=== PATIENT | female | born 1940 | race Caucasian/White ===

== ENCOUNTER 2022-04-07 05:01 | Inpatient (IN) ==
[2022-04-07 05:52] LABS: Monocytes % 5.2 %; Red Cell Distribution Width 12.8 % (11.5-14.5)
[2022-04-07 05:53] LABS: Basophils # 0.2 K/mcL (0.0-0.2); Basophils % 0.7 %; Hematocrit 32.5 % (35.3-44.9); Immature Granulocytes % 3.2 % (0-4); Lymphocytes # 1.2 K/mcL (0.6-4.6); Lymphocytes % 3.6 %; Mean Corpuscular HGB Conc 33.8 g/dL (31.6-35.5); Mean Corpuscular Hemoglobin 28.4 pg (28.0-33.3); Mean Corpuscular Volume 83.8 fL (83.0-100.0); Mean Platelet Volume 11.1 fL (9.4-12.4); Monocytes # 1.7 K/mcL (0.0-1.3); Nucleated Red Blood Cells 0.3 /100 WBC (0); Platelet Count 595 K/mcL (140-400); Red Blood Count 3.88 M/mcL (3.82-4.97); Segmented Neutrophils % 87.3 %
[2022-04-07] MEDS ORDERED: Iopamidol - 370 500 ML MLS IVP ONE (05:54)
[2022-04-07] MEDS ORDERED: Ketorolac 30 MG/ML VIAL IVP ONE (05:57)
[2022-04-07] MEDS ORDERED: Famotidine 20 MG/2 ML VIAL IVP ONE (05:57)
[2022-04-07] MEDS ORDERED: Ringers Solution, Lactated 1,000 ML IVC ONE ×2 (05:57→06:18)
[2022-04-07 05:58] LABS: Neutrophils # 28.4 K/mcL (1.6-8.9)
[2022-04-07 06:03] LABS: White Blood Count 32.5 K/mcL (4.3-11.1)
[2022-04-07] MEDS ORDERED: Cefepime HCl 2,000 MG in 0.9 % Sodium Chloride 10 ML IVP ONE (06:03)
[2022-04-07] MEDS ORDERED: Vancomycin 1,250 MG/262.5 ML IV.SOLN IVPB ONE (06:03)
[2022-04-07 06:15] LABS: Albumin 2.9 g/dL (3.5-5.7); Albumin/Globulin Ratio 0.8 (1.1-2.2); Bilirubin,Total 0.8 mg/dL (0.3-1.0); Calcium 9.1 mg/dL (8.6-10.3); Globulin 3.5 g/dL (2.4-3.5); Magnesium 2.2 mg/dL (1.6-2.6); Potassium 3.6 mEq/L (3.5-5.1); Total Protein 6.4 g/dL (6.4-8.9); Troponin I 0.28 ng/mL (< 0.04)
[2022-04-07 06:29] LABS: Thyroid Stimulating Hormone 0.781 mcIU/mL (0.340-5.600)
[2022-04-07 08:40] LABS: Bacteria,Urine Many per hpf (None-Few); Hyaline Casts,Urine Few per lpf (None Seen); Mucus,Urine Few per lpf (None-Few); RBC,Urine 0-3 per hpf (0-3); Squamous Epithelial Cell,Urine Few per hpf (None-Few); WBC,Urine 0-3 per hpf (0-3)
[2022-04-07 08:41] LABS: Bilirubin,Urine Negative (Negative); Blood,Urine Negative (Negative); Clarity,Urine Turbid (Clear); Color,Urine Yellow (Yellow); Glucose,Urine (UA) Normal (Normal); Ketones,Urine Negative (Negative); Leukocyte Esterase,Urine Negative (Negative); Nitrite,Urine Negative (Negative); PH,Urine 5.5 pH Units (5.0-8.0); Protein,Urine 100 mg/dL (Neg-Trace); Specific Gravity,Urine 1.018 (1.010-1.025)
[2022-04-07] MEDS ORDERED: Naloxone 0.4 MG/ML INJ IVP PRN (11:28)
[2022-04-07] MEDS ORDERED: Ondansetron 4 MG/2 ML VIAL IVP PRN (11:28)
[2022-04-07] MEDS ORDERED: Lactulose 200 GM, Sodium Chloride IRRigation 700 ML RC ONE (11:30)
[2022-04-07] MEDS: *HR* Heparin 5,000 UNIT/ML VIAL SQ SCH ×2 (12:59→23:09)
[2022-04-07] MEDS: Piperacillin/Tazobactam 3.375 GM in 0.9 % Sodium Chloride Mini Bag 100 ML IVPB SCH ×2 (13:00→23:02)
[2022-04-07] MEDS ORDERED: D5% in Water 1,000 ML IVC PRN (14:10)
[2022-04-07] MEDS ORDERED: Dextrose Gel 15 GM/37.5 ML TUBE PO PRN ×2 (14:10)
[2022-04-07] MEDS ORDERED: *HR* Dextrose 50 % in Water (Syg) 50 ML SYRINGE IVP PRN (14:10)
[2022-04-07] MEDS ORDERED: Insulin DETEMIR 100 UNIT/ML X5UNITS SUBQ ONE (14:11)
[2022-04-07] MEDS ORDERED: 0.9 % Sodium Chloride 1,000 ML IVC SCH (16:00)
[2022-04-07 17:44] LABS: INR 2.3; Prothrombin Time 25.1 Seconds (9.4-12.1)
[2022-04-07 18:06] LABS: Hepatitis B Surface Antigen Nonreactive (Nonreactive)
[2022-04-07] MEDS: Insulin LISPRO 300 UNITS/3 ML VIAL SUBQ SCH (18:10)
[2022-04-07 18:34] LABS: Hepatitis B Core IgM Nonreactive (Nonreactive)
[2022-04-07 18:35] LABS: Hepatitis C Virus Antibody Nonreactive (Nonreactive)
[2022-04-07 18:36] LABS: Hepatitis A Antibody IgM Nonreactive (Nonreactive)
[2022-04-08] MEDS: Insulin LISPRO 300 UNITS/3 ML VIAL SUBQ SCH ×2 (00:30→05:48)
[2022-04-08 03:14] VITALS: O2SAT 96
[2022-04-08] MEDS ORDERED: Ringers Solution, Lactated 500 ML IVC ONE ×2 (03:36→04:40)
[2022-04-08] MEDS ORDERED: Ringers Solution, Lactated 1,000 ML ONE (03:38)
[2022-04-08] MEDS: *HR* Heparin 5,000 UNIT/ML VIAL SQ SCH (05:47)
[2022-04-08 06:57] LABS: Hemoglobin 9.9 g/dL (11.5-15.4); Mean Corpuscular Hemoglobin 27.5 pg (28.0-33.3); Mean Corpuscular Volume 83.3 fL (83.0-100.0); Nucleated Red Blood Cells 1.9 /100 WBC (0); Platelet Count 446 K/mcL (140-400); Red Cell Distribution Width 12.8 % (11.5-14.5)
[2022-04-08 07:02] LABS: White Blood Count 30.8 K/mcL (4.3-11.1)
[2022-04-08 07:06] LABS: INR 2.9; Prothrombin Time 32.3 Seconds (9.4-12.1)
[2022-04-08 07:12] LABS: Platelet Estimate Normal (Normal); Toxic Vacuolation Present (Not Present)
[2022-04-08 07:13] LABS: Large Platelets Present (Not Present); Poikilocytosis 1+ (Not Present); Reactive Lymphocytes Present (Not Present)
[2022-04-08 07:14] LABS: Lymphocytes # 3.1 K/mcL (0.6-4.6); Neutrophils # 27.7 K/mcL (1.6-8.9)
[2022-04-08 07:27] LABS: BUN/Creatinine Ratio 33 (6-26); Blood Urea Nitrogen 110 mg/dL (8-23); Calcium 7.9 mg/dL (8.6-10.3); Carbon Dioxide 20 mEq/L (23-29); Chloride 91 mEq/L (98-107); Cholesterol < 25 mg/dL (< 200); Glucose 105 mg/dL (70-105); HDL Cholesterol 6 mg/dL (40-59); Osmolality,Calculated 305 (280-300); Potassium 3.8 mEq/L (3.5-5.1); Sodium 130 mEq/L (136-145); Triglycerides 87 mg/dL (< 150)
[2022-04-08] MEDS ORDERED: 0.9 % Sodium Chloride 1,000 ML IVC ONE (09:08)
[2022-04-08 09:54] VITALS: BP 98/60; PULSE 63; TEMP 95
[2022-04-08 09:54] LABS: ABG Base Excess -11 mEq/L (-2 to 3); ABG Chloride 96 mEq/L (98-107); ABG Glucose 67 mg/dL (60-95); ABG HCO3 14 mEq/L (21-27); ABG Ionized Calcium 0.95 mmol/L (1.15-1.35); ABG Oxygen Saturation 94 % (95-98); ABG PCO2 25 mmHg (35-45); ABG PH 7.34 pH Units (7.32-7.45); ABG PO2 75 mmHg (85-104); ABG TCO2 14 mEq/L (20-26)
[2022-04-08 10:21] LABS: Albumin 1.5 g/dL (3.5-5.7); Alkaline Phosphatase 131 Units/L (34-104); BUN/Creatinine Ratio 37 (6-26); Bilirubin,Direct 0.4 mg/dL (0.0-0.2); Bilirubin,Indirect 0.2 mg/dL (0.0-1.0); Bilirubin,Total 0.6 mg/dL (0.3-1.0); Blood Urea Nitrogen 88 mg/dL (8-23); Calcium 5.5 mg/dL (8.6-10.3); Carbon Dioxide 15 mEq/L (23-29); Chloride 106 mEq/L (98-107); Globulin 1.5 g/dL (2.4-3.5); Glucose 62 mg/dL (70-105); Osmolality,Calculated 307 (280-300); Potassium 3.3 mEq/L (3.5-5.1); Sodium 136 mEq/L (136-145)
[2022-04-08 10:29] LABS: Alanine Aminotransferase 1913 Units/L (7-52); Aspartate Amino Transferase > 3000 Units/L (13-39)
[2022-04-08] MEDS ORDERED: Sodium Bicarbonate 150 MEQ in D5% in Water 1,000 ML IVC SCH (11:00)
[2022-04-08] MEDS ORDERED: Calcium Gluconate 1gm/50mL 1 GM/50 ML BAG IVPB SCH (12:30)
[2022-04-08] MEDS ORDERED: Lidocaine -MPF 1% 5 ML AMPUL INFILT ONE (12:58)
== END 2022-04-08 16:00 | disposition expired | DRG 871 ==
LOC: 3NENU 05:01 → EMEROOARM 05:01 → 3NENU 11:10
PROVIDERS: ADMIT Student in an Organized Health Care Education/Training Program; ATTEND Student in an Organized Health Care Education/Training Program